=== PATIENT | male | born 1980 | race African-American/Black ===

== ENCOUNTER 2021-10-26 06:31 | Emergency (ER) | payer OTHER ==
[~2021-10-26] VITALS: Ht 172.7 cm; Wt 79.8 kg
[2021-10-26 06:50] VITALS: TEMP 98
[2021-10-26 07:20] LABS: PLATELET COUNT 256 K/uL (142-355)
[2021-10-26 07:26] LABS: POTASSIUM 3.9 mmol/L (3.6-5.2)
[2021-10-26] MEDS ORDERED: METR250T19 PO (09:48)
[2021-10-26] MEDS ORDERED: CIPRO500 MG PO (09:48)
[2021-10-26 09:55] VITALS: BP 125/74
== END 2021-10-26 09:55 | disposition home or self-care (01) ==
LOC: ED 06:31
PROVIDERS: Emergency Medicine Emergency Medical Services
DX: K52.89 Other specified noninfective gastroenteritis and colitis (principal)
CPT/HCPCS: 80048; 81000; 82150; 83690; 85027; 96360; 96374; 96375; 99284; J1170; J1885; J2405

== ENCOUNTER 2022-08-04 08:10 | Emergency (ER) | payer OTHER ==
[~2022-08-04] VITALS: Ht 170.2 cm; Wt 86.2 kg
[~2022-08-04 08:10] MED LIST: CIPRO500 MG PO; METR250T19 PO
[2022-08-04 08:18] VITALS: TEMP 98.7
[2022-08-04 08:50] LABS: PLATELET COUNT 235 K/uL (142-355)
[2022-08-04 09:03] LABS: POTASSIUM 4.2 mmol/L (3.6-5.2)
[2022-08-04 11:07] VITALS: BP 120/67
== END 2022-08-04 11:09 | disposition home or self-care (01) ==
LOC: ED 08:10
PROVIDERS: Emergency Medicine
DX: K52.89 Other specified noninfective gastroenteritis and colitis (principal)
CPT/HCPCS: 36415; 80053; 80307; 81000; 85027; 96361; 96374; 96375; 99284; J1885; J2405; Q9963